=== PATIENT | female | born 1980 | race Caucasian/White ===

== ENCOUNTER → 2017-12-13 | Outpatient (CLI) | END | disposition home or self-care (01) ==

== ENCOUNTER 2019-03-09 05:38 | Emergency (ER) | payer BC ==
[~2019-03-09] VITALS: Ht 167.6 cm; Wt 114.0 kg
[2019-03-09 06:00] VITALS: BP 141/74; PULSE 79; RESP 18; Ht 167.6 cm; Wt 114.0 kg
[2019-03-09] MEDS ORDERED: KETOROLAC 30 MG INJ IM STA (06:22)
[2019-03-09] MEDS ORDERED: MED4DP PO (07:12)
[2019-03-09] MEDS ORDERED: NAPR-985 PO (07:12)
[2019-03-09] MEDS ORDERED: CYCL10TA7 PO (07:12)
--- NOTE | 2019-03-09 07:54 | ERD ---
ER Documentation Chief Complaint Chief Complaint low back pain since yesterday. denies trauma HPI This is a pleasant 38-year-old female with no sniffing a past medical history presents the ED complaining of sudden onset and progressively worse right mid thoracic back pain since yesterday. Patient states she works here in the [employer] department and does a lot of heavy lifting for work. No direct trauma or fall. She describes her pain as stiffness. States pain is located to her right mid thoracic back and radiates down to her right lumbar back, right buttock, and right posterior thigh. She denies any numbness or tingling. She denies any loss of bowel or bladder control. She denies any fevers or chills. She denies any history of IV drug use. She states she has had the same symptoms 3 years ago. She has been taking Aleve, aspirin ibuprofen without any relief. ROS All systems reviewed and are negative except as per history of present illness. Medications Home Meds Active Scripts Methylprednisolone* (Medrol* DOSE PACK) 4 Mg/Dose-Pack Tab.ds.pk, 4 MG PO . DIRECTED, #1 PACKET Prov:DISHIGRIKIAN,ZEPYUR N PA-C 03/09/19 Cyclobenzaprine Hcl* (Cyclobenzaprine Hcl*) 10 Mg Tablet, 10 MG PO TID, #15 TAB Prov:DISHIGRIKIAN,ZEPYUR N PA-C 03/09/19 Naproxen* (Naprosyn*) 500 Mg Tablet, 500 MG PO BID PRN for PAIN AND/OR INFLAMMATION, #30 TAB Prov:DISHIGRIKIAN,ZEPYUR N PA-C 03/09/19 Allergies Allergies: Coded Allergies: Sulfa (Sulfonamide Antibiotics) (Verified Allergy, Unknown, 03/09/19) PMhx/Soc History of Surgery: Yes (TONSILLECTOMY ) Anesthesia Reaction: No Hx Neurological Disorder: No Hx Respiratory Disorders: No Hx Cardiac Disorders: No Hx Psychiatric Problems: No Hx Miscellaneous Medical Probl: Yes (GERD) Hx Alcohol Use: No Hx Substance Use: No Hx Tobacco Use: No Smoking Status: Never smoker FmHx Family History: No diabetes Physical Exam Vitals Vital Signs Date Temp Pulse Resp B/P (MAP) Pulse Ox O2 O2 Flow FiO2 Time Delivery Rate 03/09/19 98.5 79 18 141/74 100 06:00 (96) Physical Exam Const: No acute distress Head: Atraumatic Eyes: Normal Conjunctiva ENT: Normal External Ears, Nose and Mouth. Neck: Full range of motion. No meningismus. Resp: Clear to auscultation bilaterally Cardio: Regular rate and rhythm, no murmurs Abd: Soft, non tender, non distended. Normal bowel sounds Skin: No petechiae or rashes Back: No midline or flank tenderness. + Mild tenderness palpation right parathoracic and paralumbar spinal area. + Positive straight leg raise on the right. Bilateral lower extremity strength 55. Sensation grossly intact. Peripheral pulses intact. Ext: No cyanosis, or edema Neur: Awake and alert Psych: Normal Mood and Affect Results 24 hrs Laboratory Tests Test 03/09/19 06:34 POC Beta HCG, Qualitative NEGATIVE Current Medications Medications Dose Sig/Marlene Start Time Status Last (Trade) Ordered Route PRN Stop Time Admin Dose Reason Admin Ketorolac 30 mg ONCE STAT 03/09/19 DC 03/09/19 Tromethamine IM 06:22 03/09/19 06:41 (Toradol) 06:23 Procedures/MDM ED COURSE: The patient was given IM Toradol The medication was well tolerated and the patient had market improvement in symptoms. The patient remained stable throughout ED course. MEDICAL DECISION MAKIN-year-old female presents with atraumatic back pain. There are no focal neurological deficits on physical exam. Advanced imaging was deferred as symptoms are likely musculoskeletal in origin. I have low suspicion for epidural abscess, cauda equina, cord compression, spinal tumor/mass or compression fracture. Patient will be treated conservatively with appropriate pain control. She has an appointment with her orthopedist tomorrow. She is told to return here for any new or worsening symptoms. PRESCRIPTIONS: Flexeril, naproxen, prednisone SPECIALIST FOLLOW UP RECOMMENDED: None Patient has been advised to follow up with primary care in 1-2 days. Departure Diagnosis: Primary Impression: Back pain Back pain location: low back pain Chronicity: acute Back pain laterality: right Sciatica presence: with sciatica Sciatica laterality: sciatica of right side Qualified Codes: M54.41 - Lumbago with sciatica, right side Condition: Stable Patient Instructions: Back Pain W/ Sciatica Referrals: [facility] 7 a.m.- 11 p.m. Every Day of the Week NO APPOINTMENT OR AUTHORIZATION NEEDED SO [facility] Hours: Sun-Sun 9:00 AM - 5:00 PM Additional Instructions: Please see your orthopedist on Sunday as scheduled. He may need to be referred to physical therapy for ongoing pain. Return here for any new or worsening symptoms. PAPO VELAZQUEZ PA-C Mar 09, 2019 07:54
== END 2019-03-09 07:22 | disposition home or self-care (01) ==
LOC: FTE 05:38
DX: M54.41 Lumbago with sciatica, right side (principal)
CPT/HCPCS: 81025; 96372; 99284; J1885

== ENCOUNTER → 2019-03-14 | Outpatient (CLI) | payer BC ==
[~2019-03-14] MED LIST: CYCL10TA7 PO; MED4DP PO; NAPR-985 PO
== END | disposition home or self-care (01) ==
LOC: LAB 12:17 → EEVIPCON 12:17
PROVIDERS: ATTEND Obstetrics & Gynecology
DX: N92.1 Excessive and frequent menstruation with irregular cycle (principal)
CPT/HCPCS: 83001; 83002; 84443